=== PATIENT | female | born 1995 ===

== ENCOUNTER 2016-11-22 15:21 | Outpatient (CLI) | payer OTHER ==
--- NOTE | 2016-11-22 16:00 | XRay Report ---
LEFT FOOT RADIOGRAPHS INDICATION: M79.672 COMPARISON: None similar at this institution. FINDINGS: AP, lateral and oblique left foot radiographs suggest slight hallux valgus. Approximately 1.1 cm os naviculare noted. Tiny plantar calcaneal spur. Intact remainder bony articulation. No focal suspicious erosions. Grossly unremarkable soft tissues. CONCLUSION: No acute left foot radiographic abnormality with few incidental findings, as above. Please correlate. Thank you for the opportunity to participate in this patient's care.
== END 2016-11-22 15:22 | disposition home or self-care (01) ==
LOC: SPVIMAG 15:21
PROVIDERS: ATTEND Family Medicine
DX: M77.32 Calcaneal spur, left foot (principal)